=== PATIENT | male | born 1945 | race Caucasian/White ===

== ENCOUNTER 2018-02-23 10:40 | Observation (INO) | payer OTHER ==
[~2018-02-23] VITALS: Ht 154.9 cm; Wt 60.9 kg
[2018-02-23 10:44] VITALS: Ht 154.9 cm; Wt 60.9 kg
[2018-02-23 11:42] LABS: BASOPHIL % 0.5 % (0-2); PLATELET COUNT 201 x10^3mcL (130-400); RED CELL DISTRIBUTION WIDTH 13.1 % (11.5-14.5); UA SPECIFIC GRAVITY 1.015 (1.005-1.035); microscopic required? YES; urine erythrocyte TRACE (NEGATIVE)
[2018-02-23 11:52] LABS: CALCIUM 8.6 mg/dL (8.5-10.1); CARBON DIOXIDE 21.7 mmol/L (21-32); CHLORIDE SERUM 106 mmol/L (98-107); CREATININE SERUM 1.8 mg/dL (0.7-1.3); GLUCOSE SERUM 92 mg/dL (74-106); POTASSIUM SERUM 3.8 mmol/L (3.5-5.1); SODIUM SERUM 140 mmol/L (136-145)
[2018-02-23 11:57] LABS: ALBUMIN 3.5 g/dL (3.4-5.0); ALKALINE PHOSPHATASE 113 U/L (46-116); ALT/SGPT 20 U/L (16-63); AST/SGOT 21 U/L (15-37); BILIRUBIN TOTAL 0.49 mg/dL (0.20-1.00); TOTAL PROTEIN, SERUM 7.6 g/dL (6.4-8.2)
[2018-02-23 14:09] VITALS: BP 159/83
[2018-02-23 17:19] VITALS: BP 138/69
[2018-02-23 20:12] VITALS: BP 127/73
[2018-02-24 05:04] VITALS: BP 110/63
[2018-02-24 06:48] LABS: BASOPHIL % 0.6 % (0-2); PLATELET COUNT 219 x10^3mcL (130-400); RED CELL DISTRIBUTION WIDTH 12.4 % (11.5-14.5)
[2018-02-24 06:59] LABS: ALKALINE PHOSPHATASE 105 U/L (46-116); AST/SGOT 21 U/L (15-37); BILIRUBIN TOTAL 0.57 mg/dL (0.20-1.00); CALCIUM 8.6 mg/dL (8.5-10.1); CARBON DIOXIDE 20.8 mmol/L (21-32); CHLORIDE SERUM 106 mmol/L (98-107); CREATININE SERUM 1.8 mg/dL (0.7-1.3); GLUCOSE SERUM 85 mg/dL (74-106); MAGNESIUM 1.9 mg/dL (1.8-2.4); POTASSIUM SERUM 3.9 mmol/L (3.5-5.1); SODIUM SERUM 140 mmol/L (136-145); TOTAL PROTEIN, SERUM 7.4 g/dL (6.4-8.2)
[2018-02-24 07:05] LABS: ALBUMIN 3.3 g/dL (3.4-5.0)
[2018-02-24 07:36] LABS: ALT/SGPT 18 U/L (16-63)
[2018-02-24 09:00] VITALS: BP 115/68
[2018-02-24 13:20] VITALS: BP 118/70
[2018-02-27 07:14] LABS: CK-BB 0 % (0); CK-MB 0 % (0-3); CK-MM 100 % (97-100); MACRO TYPE 1 0 % (Not Observed); MACRO TYPE 2 0 % (Not Observed)
[2018-02-28 11:14] LABS: CK-BB 0 % (0); CK-MB 0 % (0-3); CK-MM 100 % (97-100); MACRO TYPE 1 0 % (Not Observed); MACRO TYPE 2 0 % (Not Observed)
[2018-02-28 11:14] LABS: CK-BB 0 % (0); CK-MB 0 % (0-3); CK-MM 100 % (97-100); MACRO TYPE 1 0 % (Not Observed); MACRO TYPE 2 0 % (Not Observed)
== END 2018-02-24 15:30 | disposition home or self-care (01) | DRG 313 ==
LOC: ED 10:40 → DU 12:21
PROVIDERS: Emergency Medicine; Internal Medicine Pulmonary Disease
DX: R07.89 Other chest pain (principal)
CPT/HCPCS: 83880; G0378; J7030; Q0092